=== PATIENT | female | born 1940 | race African-American/Black ===

== ENCOUNTER 2016-06-06 21:57 | Inpatient (IN) | payer OTHER, SELFPAY ==
--- NOTE | ~2016-06-06 | DS ---
Discharge Summary [facility] [address] [place]. [address] NAME: EWA PAINTER : 42 STATUS : DIS IN PAT#: [id number] AGE: 75 ADM/REG DATE : 06/06/16 MR#: [id number] REPORT SERV DATE: 06/09/16 DICTATED BY: TAMAR FISCHER DATE: 06/09/16 REPORT STATUS : Draft TRANSCRIBED BY: MODL DATE: 06/09/16 ADMISSION DATE: 06/06/2016 DISCHARGE DATE: 06/09/2016 HOSPITAL COURSE: This is a 75-year-old female. She has a known history of COPD; sarcoidosis; GI bleed, diverticular, seen by Dr. Cutler; diabetes; anemia; hypertension; and gout. SURGICAL HISTORY: Cholecystectomy, hysterectomy, and lumbar spine fusion. The patient comes in, cough, shortness of breath, confusion, productive yellow-green sputum, found to have sepsis, community-acquired pneumonia, COPD acute exacerbation, developed some wheezes and we placed on corticosteroid. Did well on azithromycin and Rocephin. Procal went down on azithromycin and Rocephin, 2.53 to 1.39. We will give three more days of azithromycin and eight more days of Omnicef given significant community-acquired pneumonia. The patient has been tearful, weak, likely needs facility, eval pending. We will get PFT as an outpatient. Started on Spiriva here. Blood pressures have been well controlled. Increased her metoprolol given some mild tachycardia and reduced her hydralazine. I think hydralazine can cause reflex tachycardia. The patient is amenable for discharge. Blood cultures, no growth to date. DISCHARGE MEDICATIONS: Amlodipine 10 p.o. daily, Onglyza 5 p.o. daily afternoon, Omnicef 300 p.o. b.i.d. for eight days, cholecalciferol 400 units p.o. daily, Lasix 40 p.o. daily as well as Uloric 40 p.o. q.h.s., lisinopril 40 p.o. q.h.s., multivitamin one tablet p.o. daily, metoprolol tartrate 75 p.o. daily, Myrbetriq 50 p.o. daily, Lyrica 300 p.o. q.h.s., Spiriva 18 mcg capsule one inhaled daily, azithromycin 250 p.o. daily for three more days, albuterol neb q.6 p.r.n. as well as Levemir 6 subcu b.i.d., lidocaine ointment, MiraLAX powder, Flexeril 5 p.o. b.i.d. p.r.n., hydralazine p.r.n., KCl 10 mEq p.o. daily, prednisone 20 p.o. daily for three more days, Percocet 5/325 p.o. b.i.d. p.r.n. reduction from higher dose and frequency as an outpatient try to wean down. FOLLOWUP: Follow up with PCP two weeks. Follow up pulmonary function test in four weeks. CONSULTS: None. PROCEDURES: None. DISCHARGE DIAGNOSES: See above including sepsis, community-acquired pneumonia, chronic obstructive pulmonary disease acute exacerbation, diabetes, hypertension, history of sarcoidosis. All questions were answered. Took well over 30 minutes to do. WST/MODL Discharge Summary [address] [address] NAME: EWA PAINTER : 42 STATUS : DIS IN PAT#: [id number] AGE: 75 ADM/REG DATE : 06/06/16 MR#: [id number] REPORT SERV DATE: 06/09/16 DICTATED BY: TAMAR FISCHER DATE: 06/09/16 REPORT STATUS : Draft TRANSCRIBED BY: MASHA DATE: 06/09/16 Tamar Fischer DO / [id number] CC: Tamar Fischer DO
--- NOTE | ~2016-06-06 | HP ---
History And Physical [address] [address] NAME: EWA PAINTER : 42 STATUS : ADM IN PAT#: [id number] AGE: 75 ADM/REG DATE : 06/06/16 MR#: [id number] REPORT SERV DATE: 06/07/16 DICTATED BY: CORBIN AKHTAR DATE: 06/07/16 REPORT STATUS : Draft TRANSCRIBED BY: MODL DATE: 06/07/16 DATE OF ADMISSION: 06/06/2016 CHIEF COMPLAINT: A 75-year-old female presenting with cough, shortness of breath, confusion. HISTORY OF PRESENTING ILLNESS: The patient's history was obtained through careful interview with the patient, coupled with review of [facility] and [facility] medical records. The patient states that about four days prior to admission, she began to develop a cough, productive of an increasingly yellow and green sputum. She describes fatigue, weakness, but no shortness of breath. No chest pain. She has then developed fevers, chills, rigors, and night sweats. Starting on the day prior to admission, she began to have lightheadedness and intermittent incoherence and confusion. She denies any chest pain. No abdominal pain. No headache, but she has had chronic lower back pain that is somewhat worsened by her illness, aching quality, 9/10 severity with no sciatica. She states "it is screaming at me." The patient claims her diabetes is under control. REVIEW OF SYSTEMS: Otherwise, a 14-point review of systems was obtained and was negative. PAST MEDICAL HISTORY: 1. COPD. 2. Sarcoidosis. 3. GI bleed, diverticular seen by Dr. Cutler. 4. Diabetes. 5. Anemia. 6. Hypertension. 7. Gout. PAST SURGICAL HISTORY: 1. Cholecystectomy. 2. Hysterectomy. 3. Lumbar spine fusion. 4. Lung biopsy. ALLERGIES: CODEINE. SOCIAL HISTORY: Quit smoking in 2002. No alcohol abuse. Lives alone. She has three children. She is . History And Physical [address] [address] NAME: EWA PAINTER : 42 STATUS : ADM IN PAT#: [id number] AGE: 75 ADM/REG DATE : 06/06/16 MR#: [id number] REPORT SERV DATE: 06/07/16 DICTATED BY: CORBIN AKHTAR DATE: 06/07/16 REPORT STATUS : Draft TRANSCRIBED BY: MASHA DATE: 06/07/16 FAMILY HISTORY: Mother with uterine cancer. A child with Crohn disease. CURRENT MEDICATIONS: Include albuterol inhaler, Norvasc 10 mg p.o. daily, Flexeril 5 mg p.o. b.i.d., Uloric 40 mg p.o. daily, Lidex cream, Lasix 40 mg p.o. daily, hydralazine 25 mg p.o. b.i.d., Vistaril p.r.n., Combivent, lisinopril 40 mg p.o. daily, Lopressor 50 mg p.o. b.i.d., Myrbetriq 50 mg p.o. daily, multivitamin daily, Percocet p.r.n., MiraLAX packet daily, potassium 10 mEq p.o. b.i.d., Lyrica 300 mg p.o. q.h.s., Onglyza 5 mg p.o. daily, lidocaine patch, and vitamin D. PHYSICAL EXAMINATION: VITAL SIGNS: Temperature 102.6, pulse 151, blood pressure 174/84, respiratory rate 30, and O2 saturation 99% on room air. GENERAL: An ill-appearing female, in evidence of some distress secondary to uncontrolled coughing. HEENT: Pupils equal, round, and reactive to light. No conjunctival pallor. No scleral icterus. Nares are patent. Oropharynx is clear of obstruction. Dry mucous membranes. NECK: Trachea midline. No thyromegaly. LYMPH: No cervical lymphadenopathy. No supraclavicular lymphadenopathy. RESPIRATORY: The patient has focal egophony in the lower right lung little with diminished breath sounds throughout. She has scattered rhonchi. No active wheezes at this time. She has quite labored respiratory effort, despite stating that she is not short of breath. CARDIOVASCULAR: Tachycardic, regular rhythm. No murmurs, rubs, or gallops. No extremity edema is appreciated. ABDOMEN: Soft, nontender, and nondistended. Normal bowel sounds auscultated throughout. No organomegaly. DERMATOLOGICAL: Warm and dry extremities. EXTREMITIES: No pallor. No cyanosis. PSYCHIATRIC: Normal affect. Good mood. Alert and oriented x3 at this time. LABORATORY DATA: White blood cell count 19.5, hemoglobin 12, hematocrit 35, platelets 248,000. Procalcitonin 1.68, sodium 141, potassium 3.7, chloride 105, bicarbonate 24, BUN 16, creatinine 1.38, glucose 228. Urinalysis: Negative for infection. Lactic acid 1, INR 1.3, AST 44, ALT 75, alkaline phosphatase 192, total bilirubin 1.0. STUDIES: 1. Chest x-ray by my own evaluation shows right lower lung pneumonia, increased disease compared to September 2014. 2. EKG by my own evaluation shows sinus tachycardia. ASSESSMENT AND PLAN: 1. Sepsis with white blood cell count of 19.5, tachycardia, tachypnea, encephalopathy, and fever of 102.6. Check blood cultures. Place on appropriate IV antibiotics. 2. Community-acquired pneumonia. Check blood cultures. Place on IV antibiotics. 3. COPD. Place on DuoNeb nebulizers. No active wheezes at this time. 4. Uncontrolled diabetes. Check hemoglobin A1c. Add Levemir sliding scale insulin. History And Physical [address] [address] NAME: EWA PAINTER : 42 STATUS : ADM IN [facility]#: [id number] AGE: 75 ADM/REG DATE : 06/06/16 MR#: [id number] REPORT SERV DATE: 06/07/16 DICTATED BY: CORBIN AKHTAR DATE: 06/07/16 REPORT STATUS : Draft TRANSCRIBED BY: MASHA DATE: 06/07/16 MOUNA/MAHSA Corbin Akhtar M.D. / [id number] CC: MD Yeyo Herbert II N.P.
[2016-06-06 20:58] LABS: BASOPHILS 0.2 %; BASOPHILS ABSOLUTE 0.03 10/3/uL (0.0-0.16); EOSINOPHILS 0 %; HEMOGLOBIN 11.7 g/dL (12.0-16.0); IMMATURE GRANULOCYTES 0.5 %; IMMATURE GRANULOCYTES ABSOLUTE 0.09 10/3/uL (0.0-0.11); LYMPHOCYTES 6.5 %; LYMPHOCYTES ABSOLUTE 1.27 10/3/uL (0.67-4.30); MEAN CORPUS HGB CONC 33.7 g/dL (32.0-36.0); MEAN CORPUSCULAR HEMOGLOB 29.8 pg (26.0-34.0); MEAN CORPUSCULAR VOLUME 88.3 fL (80-100); MEAN PLATELET VOLUME 10.5 fL (9.2-13.0); MONOCYTES 8.9 %; MONOCYTES ABSOLUTE 1.73 10/3/uL (0.21-1.20); NEUTROPHILS 83.9 %; NEUTROPHILS ABSOLUTE 16.36 10/3/uL (2.02-8.40); PLATELET COUNT 248 10/3/uL (150-400); RBC DISTRIBUTION WIDTH 13.6 % (12.0-16.0); RED CELL COUNT 3.93 10/6/uL (4.0-5.6)
[2016-06-06 20:59] LABS: ER CBC TAT 0 Hrs 09 Mins; HEMATOCRIT 34.7 % (36.0-48.0); MANUAL DIFF NO %; WHITE BLOOD CELLS 19.5 10/3/uL (4.5-10.5)
[2016-06-06 21:06] LABS: ASCORBIC ACID (UR NOT ORDER) NEG (NEG); BILIRUBIN, URINE NEGATIVE (NEG); KETONE, URINE 20 MG/DL (NEG); LEUKOCYTE ESTERASE(NOT OR NEG (NEG); NITRITE (URINE) NEG (NEG); WBC (NOT ORDERED) (RFLEX) 1 (0-5)
[2016-06-06 21:08] LABS: INTERNATIONAL NORMAL RATI 1.3 UNITS (-); PROTIME (NOT ORD) 15.6 SEC (12.0-14.5)
[2016-06-06 21:09] LABS: PARTIAL THROMBO TIME 34.4 SEC (22.5-37.2)
[2016-06-06 21:16] LABS: BUN (BLOOD UREA NITROGEN) 16 MG/DL (6-23); CHLORIDE, SERUM 105 MMOL/L (96-112); CO2 (CARBON DIOXIDE) 24 MMOL/L (24-34); CREATININE 1.38 MG/DL (0.55-1.02); GFR AFRICAN AMERICAN 44 ML/MIN (>=60); GFR NON AFRICAN AMERICAN 38 ML/MIN (>=60); POTASSIUM, SERUM 3.7 MMOL/L (3.5-5.3); SGOT(AST) 44 U/L (5-40); SGPT(ALT) 75 U/L (5-65); SODIUM, SERUM 141 MMOL/L (135-148); TOTAL PROTEIN 7.6 G/DL (6.0-8.5)
[2016-06-06 21:19] LABS: A/G RATIO 0.6 (0.7-1.9); ALBUMIN 2.9 G/DL (3.5-5.0); ALKALINE PHOSPHATASE 192 U/L (45-117); BAND NEUTROPHILS 6 %; CALCIUM, SERUM 9.1 MG/DL (8.5-10.4); ER DIFF TAT 0 Hrs 29 Mins; GLOBULIN 4.7 G/DL (2.5-4.1); GLUCOSE, SERUM 228 MG/DL (60-99); LYMPHOCYTES 6 %; LYMPHOCYTES ABSOLUTE (CALC) 1.17 10/3/uL (0.67-4.30); MONOCYTES 8 %; MONOCYTES ABSOLUTE (CALC) 1.56 10/3/uL (0.21-1.20); NEUTROPHILS ABSOLUTE (CALC) 16.77 10/3/uL (2.02-8.40); PLATELET ESTIMATE ADQ (ADEQUATE); SEGMENTED NEUTROPHIL (0) 80 %; TOTAL NUCLEATED CELLS 100
[2016-06-06 21:23] LABS: INFLUENZA A SCREEN NEGATIVE (NEGATIVE); INFLUENZA B SCREEN NEGATIVE (NEGATIVE)
[~2016-06-06 21:57] MED LIST: APRES25 PO; BENTYL20 PO; BLOOD SUGAR MED PO; DEPO-ESTRAD5 MG/1 ML IM; DEPO-ESTRADIOL IM; DOLOPHINE5 MG PO; DOXY-CAPS100 MG PO; HYGROTON 25 MG25 MG PO; INDOCIN SR75 MG PO; K-TABS10 MEQ PO; KLOR-CON M2020 MEQ PO; L40 PO; LISINOPRIL 80 MG; LISINOPRIL40 MG PO; LOP50 PO; LYRICA75 PO; MAGNESIUM OTC PO; MAGOX4 PO; METOPROLOL PO; MIRALAXPKT PO; NORV10 PO; NORV25 PO; ONGLYZA5 MG PO; PCET PO; PERCOCET1 TA4 PO; PROTONIX PO; RESCUE INHALER PO; SINGULAIR1 PO; T300 PO; ULORIC PO; ULORIC40 MG PO; Z100 PO; [UNRECOGNIZED DRUG - OTHER]; [UNRECOGNIZED DRUG - REMARK]
[2016-06-06 21:58] LABS: PROCALCITONIN 1.68 ng/mL (<0.5)
[2016-06-06] MEDS ORDERED: LOP50 PO (22:25)
[2016-06-06] MEDS ORDERED: ULORIC40 MG PO (22:25)
[2016-06-06] MEDS ORDERED: LYRICA300 MG PO (22:26)
[2016-06-06] MEDS ORDERED: FLEXERIL5 MG PO (22:26)
[2016-06-06] MEDS ORDERED: PERCOCET 10/3251 TAB PO (22:26)
[2016-06-06] MEDS ORDERED: VIST25 PO (22:27)
[2016-06-06] MEDS ORDERED: MIRALAX POWDER1 PKT PO (22:27)
[2016-06-06] MEDS ORDERED: LIDOCAINE 5% OINT TOP (22:27)
[2016-06-06] MEDS ORDERED: COMBIVENT RESPIM4 GM INH (22:28)
[2016-06-06] MEDS ORDERED: NORV10 PO (22:28)
[2016-06-06] MEDS ORDERED: LIDEX CREAM 0.015 GM TOP (22:28)
[2016-06-06] MEDS ORDERED: APRES25 PO (22:29)
[2016-06-06] MEDS ORDERED: ALBUTEROL5 INH (22:29)
[2016-06-06] MEDS ORDERED: CENTRUM PO (22:29)
[2016-06-06] MEDS ORDERED: VITAMIN D PO (22:29)
[2016-06-06] MEDS ORDERED: L40 PO (22:30)
[2016-06-06] MEDS ORDERED: MYRBETRIQ50 MG PO (22:30)
[2016-06-06] MEDS ORDERED: KDUR10 PO (22:30)
[2016-06-06] MEDS ORDERED: LISINOPRIL40 MG PO (22:30)
[2016-06-06] MEDS ORDERED: ONGLYZA5 MG PO (22:30)
[2016-06-07 06:43] LABS: BASOPHILS 0.1 %; BASOPHILS ABSOLUTE 0.02 10/3/uL (0.0-0.16); EOSINOPHILS 0.1 %; EOSINOPHILS ABSOLUTE 0.01 10/3/uL (0.0-0.53); HEMATOCRIT 35.1 % (36.0-48.0); HEMOGLOBIN 11.8 g/dL (12.0-16.0); IMMATURE GRANULOCYTES 0.2 %; IMMATURE GRANULOCYTES ABSOLUTE 0.03 10/3/uL (0.0-0.11); LYMPHOCYTES 7.3 %; LYMPHOCYTES ABSOLUTE 1.06 10/3/uL (0.67-4.30); MANUAL DIFF NO %; MEAN CORPUS HGB CONC 33.6 g/dL (32.0-36.0); MEAN CORPUSCULAR HEMOGLOB 29.5 pg (26.0-34.0); MEAN CORPUSCULAR VOLUME 87.8 fL (80-100); MEAN PLATELET VOLUME 10.1 fL (9.2-13.0); MONOCYTES 6.9 %; NEUTROPHILS 85.4 %; NEUTROPHILS ABSOLUTE 12.38 10/3/uL (2.02-8.40); PLATELET COUNT 244 10/3/uL (150-400); RBC DISTRIBUTION WIDTH 13.5 % (12.0-16.0); WHITE BLOOD CELLS 14.5 10/3/uL (4.5-10.5)
[2016-06-07 06:48] LABS: INTERNATIONAL NORMAL RATI 1.3 UNITS (-); PROTIME (NOT ORD) 15.9 SEC (12.0-14.5)
[2016-06-07 06:49] LABS: PARTIAL THROMBO TIME 37.1 SEC (22.5-37.2)
[2016-06-07 07:04] LABS: A/G RATIO 0.5 (0.7-1.9); ALBUMIN 2.6 G/DL (3.5-5.0); ALKALINE PHOSPHATASE 190 U/L (45-117); CALCIUM, SERUM 8.8 MG/DL (8.5-10.4); CHLORIDE, SERUM 106 MMOL/L (96-112); CO2 (CARBON DIOXIDE) 25 MMOL/L (24-34); CREATININE 1.13 MG/DL (0.55-1.02); GFR AFRICAN AMERICAN 56 ML/MIN (>=60); GFR NON AFRICAN AMERICAN 48 ML/MIN (>=60); GLOBULIN 4.8 G/DL (2.5-4.1); POTASSIUM, SERUM 3.5 MMOL/L (3.5-5.3); SGOT(AST) 41 U/L (5-40); SGPT(ALT) 68 U/L (5-65); SODIUM, SERUM 143 MMOL/L (135-148); TOTAL BILIRUBIN 1.1 MG/DL (0-1.2); TOTAL PROTEIN 7.4 G/DL (6.0-8.5); TROPONIN I <0.02 NG/ML (<0.05); ULTRASENSITIVE TSH 0.715 MCIU/ML (0.358-3.740)
[2016-06-07 07:06] LABS: BUN (BLOOD UREA NITROGEN) 11 MG/DL (6-23); GLUCOSE, SERUM 170 MG/DL (60-99)
[2016-06-07 07:38] LABS: PROCALCITONIN 2.53 ng/mL (<0.5)
[2016-06-08 08:14] LABS: BASOPHILS 0.6 %; BASOPHILS ABSOLUTE 0.06 10/3/uL (0.0-0.16); EOSINOPHILS 0.9 %; HEMATOCRIT 38.2 % (36.0-48.0); HEMOGLOBIN 13.1 g/dL (12.0-16.0); IMMATURE GRANULOCYTES 0.6 %; IMMATURE GRANULOCYTES ABSOLUTE 0.06 10/3/uL (0.0-0.11); LYMPHOCYTES 17.3 %; LYMPHOCYTES ABSOLUTE 1.83 10/3/uL (0.67-4.30); MEAN CORPUS HGB CONC 34.3 g/dL (32.0-36.0); MEAN CORPUSCULAR HEMOGLOB 29.8 pg (26.0-34.0); MEAN CORPUSCULAR VOLUME 86.8 fL (80-100); MONOCYTES 10.6 %; MONOCYTES ABSOLUTE 1.12 10/3/uL (0.21-1.20); NEUTROPHILS ABSOLUTE 7.38 10/3/uL (2.02-8.40); PLATELET COUNT 265 10/3/uL (150-400); RBC DISTRIBUTION WIDTH 13.8 % (12.0-16.0); WHITE BLOOD CELLS 10.6 10/3/uL (4.5-10.5)
[2016-06-08 08:15] LABS: MANUAL DIFF NO %
[2016-06-08 08:24] LABS: BUN (BLOOD UREA NITROGEN) 10 MG/DL (6-23); CALCIUM, SERUM 9.2 MG/DL (8.5-10.4); CHLORIDE, SERUM 108 MMOL/L (96-112); CO2 (CARBON DIOXIDE) 24 MMOL/L (24-34); CREATININE 1.24 MG/DL (0.55-1.02); GFR AFRICAN AMERICAN 50 ML/MIN (>=60); GFR NON AFRICAN AMERICAN 43 ML/MIN (>=60); GLUCOSE, SERUM 106 MG/DL (60-99); POTASSIUM, SERUM 3.5 MMOL/L (3.5-5.3); SODIUM, SERUM 142 MMOL/L (135-148)
[2016-06-09 08:13] LABS: PROCALCITONIN 1.39 ng/mL (<0.5)
[2016-06-09 09:41] LABS: BUN (BLOOD UREA NITROGEN) 14 MG/DL (6-23); CALCIUM, SERUM 8.9 MG/DL (8.5-10.4); CHLORIDE, SERUM 107 MMOL/L (96-112); CO2 (CARBON DIOXIDE) 22 MMOL/L (24-34); CREATININE 1.23 MG/DL (0.55-1.02); GFR AFRICAN AMERICAN 50 ML/MIN (>=60); GFR NON AFRICAN AMERICAN 43 ML/MIN (>=60); GLUCOSE, SERUM 92 MG/DL (60-99); POTASSIUM, SERUM 3.6 MMOL/L (3.5-5.3); SODIUM, SERUM 144 MMOL/L (135-148)
[2016-06-09] MEDS ORDERED: OMNICEF300 PO (12:14)
[2016-06-09] MEDS ORDERED: NOVOLOG SC (12:18)
[2016-06-09] MEDS ORDERED: MVI PO (12:19)
[2016-06-09] MEDS ORDERED: SPIRIVA INH (12:24)
[2016-06-09] MEDS ORDERED: ZITH250 PO (12:25)
[2016-06-09] MEDS ORDERED: LEVEMIR SC (12:26)
[2016-06-09] MEDS ORDERED: FLORASTOR250 MG PO (12:33)
[2016-06-09] MEDS ORDERED: P20 PO (12:34)
[2016-06-09] MEDS ORDERED: PCET PO (12:35)
== END 2016-06-09 15:15 | disposition home health service (06) | DRG 871 ==
LOC: ER 21:57 → 6NO 22:47
PROVIDERS: Emergency Medicine; Hospitalist; Internal Medicine
DX: A41.9 Sepsis, unspecified organism (principal); J18.9 Pneumonia, unspecified organism; G93.41 Metabolic encephalopathy; E11.65 Type 2 diabetes mellitus with hyperglycemia; J44.1 Chronic obstructive pulmonary disease with (acute) exacerbation; D86.9 Sarcoidosis, unspecified; Z90.49 Acquired absence of other specified parts of digestive tract; Z90.710 Acquired absence of both cervix and uterus; Z98.1 Arthrodesis status
CPT/HCPCS: 71010; 80048; 80053; 81001; 82962; 83605; 83735; 83880; 84145; 84443; 84484; 85025; 85610; 85730; 87040; 87804; 93005; 94640; 96374; 97161-GP; 99285; A9270-GY; J0456